=== PATIENT | male | born 2005 | race Caucasian/White ===

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

== ENCOUNTER 2024-11-24 20:52 | Emergency (ER) | payer BC, SELFPAY ==
[2024-11-24] VITALS (8 sets, daily range): BP systolic 100–129; BP diastolic 60–72; PULSE 55–80; RESP 16; TEMP 36.8–37.2; O2SAT 96–99; BMI 24.3
--- NOTE | 2024-11-24 21:29 | CT_ITS ---
PROCEDURE INFORMATION: Exam: CT Abdomen And Pelvis With Contrast Exam date and time: 11/24/2024 9:52 PM Age: 19 years old Clinical indication: Abdominal pain; Additional info: Periumbilical pain 2d, diarrhea TECHNIQUE: Imaging protocol: Computed tomography of the abdomen and pelvis with contrast. Radiation optimization: All CT scans at this facility use at least one of these dose optimization techniques: automated exposure control; mA and/or kV adjustment per patient size (includes targeted exams where dose is matched to clinical indication); or iterative reconstruction. Contrast material: ISOVUE; Contrast volume: 75 ml; Contrast route: IV; COMPARISON: No relevant prior studies available. FINDINGS: Liver: Diffuse fatty infiltration. Measures 22 cm. No mass. Gallbladder and biliary ducts: Normal. No calcified stones. No ductal dilation. Pancreas: Normal. No ductal dilation. Spleen: Normal. No splenomegaly. Adrenal glands: Normal. No mass. Kidneys and ureters: Normal. No hydronephrosis. Stomach and bowel: Unremarkable. No obstruction. No mucosal thickening. Appendix: No evidence of appendicitis. Intraperitoneal space: Unremarkable. No free air. No significant fluid collection. Vasculature: Unremarkable. No abdominal aortic aneurysm. Lymph nodes: Shotty retroperitoneal/mesenteric lymph nodes without lymphadenopathy. Urinary bladder: Unremarkable as visualized. Reproductive: Unremarkable as visualized. Bones/joints: Unremarkable. No acute fracture. Soft tissues: Unremarkable. IMPRESSION: 1. No acute findings identified. 2. Hepatomegaly with fatty infiltration. 3. Reactive lymph nodes. Correlate with mesenteric lymphadenitis symptoms.
--- NOTE | 2024-11-24 21:30 | HMH.EDGENADL ---
Discharge Plan Disposition Chief Complaint: Abdominal Pain Prescriptions Prescriptions: No Action triamcinolone acetonide 15 GM cream 1 applicatio TP TIDP PRN (Reason: Itching) 7 Days Qty: 1 0RF Rx Instructions: 0.025% diphenhydramine HCl 25 MG capsule 25 mg PO Q6HP PRN (Reason: Itching) Qty: 30 0RF methylprednisolone 4 MG tablets,dose pack 4 mg PO DIRECTED 6 Days Qty: 21 0RF Referrals Follow up/Referrals: Provider,Referral, MD [Primary Care Provider] - See instructions Clinical Impressions Clinical Impression: Acute mesenteric adenitis Instructions Patient Instructions: DI for Acute Abdominal Pain Print Language Print Language: Georgian Discharge ED Provider: Eddie Benavides General Adult HPI General Chief complaint: Abdominal Pain Stated complaint: vomiting, stomach ache Time Seen by Provider: 11/24/24 21:11 Mode of Arrival: Ambulatory Source of Information: Patient Description of Symptoms (Recalled from ER Triage Doc. by RN): Patient reports nausea, vomiting, and diarrhea that began yesterday and has resolved. Patient also reports left lower quadrant pain that has not resolved. History of Present Illness HPI narrative: Patient is a 19-year-old male with past medical history of previous gallbladder problems that has not undergone surgery who presents emergency department for evaluation of multiple complaints. Patient has had periumbilical abdominal pain over the last 48 hours not particularly modifiable. There is associated nonbloody vomiting and loose stools. No trauma. No dysuria. No other acute complaints at this time Please note that above description of symptoms, in this electronic medical record under categorization of recalled from ER triage doctor by RN are reflective of an initial nursing assessment, however, is not reflective of my full history and physical exam that was personally taken and clarified. Consequentially, this preceding description of symptoms, which may include the patient's categorized chief complaint in the EMR, do not reflect my personal clinical impression, and the ultimate description of history of present illness and patient stated complaints should be deferred to this section of the note. Unless stated otherwise or congruent with this section of the note, additional signs, symptoms, or incongruence should be interpreted as inaccurate with my clinical impression. Related Data Previous Rx's ?Medication ?Instructions ?Recorded diphenhydramine HCl 25 mg capsule 25 mg PO Q6HP PRN Itching #30 caps 02/17/22 methylprednisolone 4 mg tablets in 4 mg PO DIRECTED 6 days #21 02/17/22 a dose pack packets triamcinolone acetonide 0.025 % 1 applicatio topical TIDP PRN 02/17/22 topical cream Itching 7 days ##1 Allergies Allergy/AdvReac Type Severity Reaction Status Date / Time No Known Allergies Allergy Verified 02/17/22 09:45 [facility] Disclaimer: The information contained in this section may have been updated after the patient was seen, as this information can be updated by other users. Social History Smoking Status: Current every day smoker alcohol intake: never current occupational status: other Travel in the last 8 weeks: None ROS Obtained: Yes Systems reviewed as appropriate & no additional complaints except as documented Physical Exam General General appearance: alert and in no apparent distress Head Head exam: atraumatic and normocephalic Eye Eye exam: Present PERRL ENT ENT exam: Present mucous membranes moist Neck Neck exam: Present normal inspection Chest Chest inspection: Present normal inspection and symmetric chest wall rise Respiratory Respiratory exam: Present normal lung sounds bilaterally; Absent respiratory distress Cardiovascular Cardiovascular exam: Present regular rate and normal rhythm Abdominal Exam Abdominal exam: Present soft and guarding (Voluntary); Absent tenderness Extremities Exam Extremities exam: Present normal inspection Neurological Exam Neurological exam: Present alert Psychiatric Psychiatric exam: Present normal affect Skin Skin exam: Present warm and dry Medical Decision Making Medical Records Screening: Per USPSTF and CDC recommendations, given the prevalence of disease in our region, it is our hospital?s policy to screen for HIV and viral Hepatitis for all patients aged 18 and over and those with ongoing risk factors. Toño Inquiry Pt receiving controlled substance: No Vital Signs: 11/24/24 21:13 11/24/24 21:44 11/24/24 21:45 Temperature 98.2 F Temperature Source Oral Pulse Rate 62 63 Pulse Rate [Right] 66 Respiratory Rate 16 Blood Pressure Blood Pressure [Right Arm] 129/65 Blood Pressure Mean [Right Arm] 86 02 Sat by Pulse Oximetry 97 98 97 11/24/24 22:01 11/24/24 22:30 11/24/24 22:46 Temperature Temperature Source Pulse Rate 66 71 80 Pulse Rate [Right] Respiratory Rate Blood Pressure 117/71 106/72 L Blood Pressure [Right Arm] Blood Pressure Mean [Right Arm] 02 Sat by Pulse Oximetry 96 97 99 11/24/24 23:00 Temperature Temperature Source Pulse Rate 55 L Pulse Rate [Right] Respiratory Rate Blood Pressure 100/60 L Blood Pressure [Right Arm] Blood Pressure Mean [Right Arm] 02 Sat by Pulse Oximetry 96 Lab Data Lab Results 11/24/24 21:25: WBC 7.0, RBC 5.06, Hgb 15.7, Hct 44.0, MCV 87.0, MCH 31.0, MCHC 35.7 H, RDW 12.0, Plt Count 279, MPV 9.2, Neut % (Auto) 49.8, Lymph % (Auto) 38.7, Johnston % (Auto) 8.5, Eos % (Auto) 1.7, Baso % (Auto) 1.0, Neut # (Auto) 3.5, Lymph # (Auto) 2.7, Johnston # (Auto) 0.6, Eos # (Auto) 0.1, Baso # (Auto) 0.1, Sodium 140, Potassium 3.8, Chloride 104, Carbon Dioxide 25, Anion Gap 14.8, BUN 19, Creatinine 0.80, Estimated Creat Clear 197, Estimated GFR 122, Est GFR ( Amer) 148, Glucose 92, Calcium 9.5, Total Bilirubin 0.9, AST 25, ALT 21, Alkaline Phosphatase 62, Total Protein 7.6, Albumin 5.3 H, Globulin 2.3, Albumin/Globulin Ratio 2.3 H, Lipase 83 11/24/24 21:35: SARS-CoV-2 (PCR) Not detected, Influenza A Untype (PCR) Not detected, Influenza Type B (PCR) Not detected 11/24/24 : Urine Color Yellow, Urine Appearance Clear, Urine pH 6.5, Ur Specific [place] >= 1.030, Urine Protein 100, Urine Glucose (UA) Negative, Urine Ketones Negative, Urine Blood Negative, Urine Nitrate Negative, Urine Bilirubin Negative, Urine Urobilinogen 0.2, Ur Leukocyte Esterase Negative, Urine RBC Occasional, Urine WBC 3-5, Ur Squamous Epith Cells Occasional, Calcium Oxalate Crystal 1+, Urine Mucus 4+ 11/24/24 21:25 11/24/24 21:25 Orders (Tests/Meds): ED MEDICATIONS Discontinued Medications Generic Name Dose Route Start Last Admin Trade Name Freq PRN Reason Stop Dose Admin Acetaminophen 1,000 mg 11/24/24 21:29 11/24/24 21:35 Acetaminophen 500mg Tab PO 11/24/24 21:30 1,000 mg ONCE ONE Administration Iopamidol 75 ml 11/24/24 21:52 11/24/24 21:53 Iopamidol-370 (76%);100ml Bottle IV 11/24/24 21:53 75 ml ONCE ONE Administration Ketorolac Tromethamine 30 mg 11/24/24 21:29 11/24/24 21:35 Ketorolac 30mg/Ml Vial IV 11/24/24 21:30 30 mg ONCE ONE Administration Ondansetron HCl 4 mg 11/24/24 21:29 11/24/24 21:34 Ondansetron 4mg/2ml Vial IV 11/24/24 21:30 4 mg ONCE ONE Administration Sodium Chloride 10 ml 11/24/24 21:52 11/24/24 21:53 Sodium Chloride 0.9% 10ml Syr (Rad Only) IV 11/24/24 21:53 10 ml ONCE ONE Administration ORDERS Category Date Time Status CT abdomen pelvis w con Stat Cat Scan 11/24/24 21:29 Completed CBC w/Auto Diff [Complete Blood Count Auto Diff] Stat Lab 11/24/24 21:25 Completed CMP [Comprehensive Metabolic Panel] Stat Lab 11/24/24 21:25 Completed Lipase Stat Lab 11/24/24 21:25 Completed Rapid PCR Covid and Flu A/B Stat Lab 11/24/24 21:35 Completed UA [Urinalysis and Microscopic] Stat Lab 11/24/24 Completed Medical Decision Narrative: In summary patient is a 19-year-old male past medical history described above who presents emergency department for evaluation of abdominal pain, vomiting, diarrhea. Patient is hemodynamically stable nontoxic-appearing upon arrival, afebrile. Differential diagnosis includes pancreatitis, appendicitis, gastroenteritis, among others. Workup will be conducted with hematologic labs, CT abdomen pelvis IV contrast, viral swab. Initial inventions include Zofran, Toradol, Tylenol. Initial hematologic labs reviewed by me and are nonactionable no significant leukocytosis no JEM or critical electrolyte abnormality lipase normal. Urinalysis interpreted by me and not consistent with infection viral swab negative. Upon repeat evaluation patient continued to be well-appearing. CT abdomen pelvis IV contrast has reactive lymph nodes consistent with mesenteric adenitis. No other acute pathology. Given this patient is appropriate for outpatient management at this time was given return precautions. Critical Care Critical Care Time Critical Care Time: No
[2024-11-24] MEDS: ONDANSETRON 4MG/2ML VIAL 4 MG IV (21:34)
[2024-11-24] MEDS: KETOROLAC 30MG/ML VIAL 30 MG IV (21:35)
[2024-11-24] MEDS: ACETAMINOPHEN 500MG TAB 1000 MG PO (21:35)
[2024-11-24 21:37] LABS: Appearance,Urine CLEAR (Clear); Blood, Urine Negative (Negative); Color,Urine YELLOW (Yellow); Glucose,Urine (UA) Negative (Negative); Ketones,Urine Negative (Negative); Leukocyte Esterase,Urine Negative (Negative); Microscopic, Urine URINE MICROSCOPIC (MICROSCOPIC); Nitrate,Urine Negative (Negative); PH,Urine 6.5 (5.0-8.5); Protein,Urine 100 (Negative); Specific Gravity, Urine >= 1.030 (1.005-1.030); Urobilinogen,Urine 0.2 EU/dl (0.2)
[2024-11-24 21:41] LABS: Albumin Level 5.3 g/dl (3.5-5.0); Basophils # 0.1 K/mm3 (0-0.2); Chloride 104 mmol/L (98-107); Eosinophils # 0.1 K/mm3 (0.0-0.4); Eosinophils % 1.7 % (0.1-12.0); Hemoglobin 15.7 g/dL (14.1-18.0); Lymphocytes # 2.7 K/mm3 (0.7-4.5); Lymphocytes % 38.7 % (10-50); Mean Corpuscular HGB Conc 35.7 g/dL (31.8-35.4); Mean Platelet Volume 9.2 fl (7.4-10.4); Monocytes # 0.6 K/mm3 (0.1-1.0); Monocytes % 8.5 % (1.7-9.3); Neutrophils # 3.5 K/mm3 (1.8-7.8); Neutrophils % 49.8 % (37.0-80.0); Platelet Count 279 K/mm3 (142-424); Potassium 3.8 mmoL/L (3.5-5.1); Red Blood Count 5.06 M/mm3 (4.60-6.20); Sodium 140 mmol/L (136-145)
[2024-11-24 21:44] LABS: Alanine Aminotransferase 21 U/L (12-78); Albumin/Globulin Ratio 2.3 (1.1-1.8); Alkaline Phosphatase 62 U/L (38-126); Anion Gap 14.8 mEq/L (5-15); Aspartate Amino Transferase 25 U/L (17-59); Bilirubin,Total 0.9 mg/dl (0.2-1.3); Blood Urea Nitrogen 19 mg/dl (9-20); Calcium 9.5 mg/dl (8.4-10.2); Carbon Dioxide 25 mmol/L (22.0-30.0); Creatinine Clearance Estimated 197 mL/min (50-200); Estimated Glomerular Filt Rate 122 ml/min (>60); GFR (African American) 148 ML/MIN (>60); Globulin 2.3 g/dL (1.3-3.2); Glucose 92 mg/dl (74-100); Lipase 83 U/L (23-300); Total Protein,Serum 7.6 g/dl (6.3-8.2)
[2024-11-24 21:45] LABS: Coronavirus 19, PCR Not Detected (NotDetected); Influenza A, PCR Not Detected (NotDetected); Influenza B, PCR Not Detected (NotDetected)
[2024-11-24 21:50] LABS: Bilirubin,Urine Negative (Negative)
[2024-11-24] MEDS: IOPAMIDOL-370 (76%);100ML BOTTLE 75 ML IV (21:53)
[2024-11-24] MEDS: SODIUM CHLORIDE 0.9% 10ML SYR (RAD ONLY) 10 ML IV (21:53)
[2024-11-24 21:58] LABS: Calcium Oxalate Crystals,Urine 1+ /lpf; Mucus,Urine 4+ /lpf; RBC,Urine Occasional #/hpf (0-3); Squamous Epithelial Cell,Urine Occasional #/hpf (0-5)
== END 2024-11-24 23:28 | disposition home or self-care (01) ==
PROVIDERS: Emergency Provider Emergency Medicine
DX: I88.0 Nonspecific mesenteric lymphadenitis (principal)
CPT/HCPCS: 74177; 80053; 81001; 83690; 85025; 87636; 96374; 96375; 99285; J1885; J2405; Q9967